=== PATIENT | female | born 1995 | race Caucasian/White ===

== ENCOUNTER 2023-02-20 17:07 | Emergency (ER) | payer BC, SELFPAY ==
[2023-02-20 17:09] VITALS: BP 108/73; PULSE 102; RESP 16; TEMP 36.7; O2SAT 98
--- NOTE | 2023-02-20 17:37 | W.ED.GENAD ---
Discharge Plan Disposition Patient Disposition: Home Discharge Details Clinical Impression: Tinea versicolor Primary Care Provider: None,None ED Provider: Jimmy Jaime Home Meds and New Rx's Prescriptions: New ketoconazole 2 % cream 1 applic topical HS 14 Days Qty: 30 1RF Discharge Instructions Instructions: Tinea Versicolor (ED) Additional Instructions: Please continue to monitor your symptoms and return immediately for any new or significant worsening of your condition. Otherwise we have placed a referral for you to establish a primary care provider locally and follow-up on the rash. Please use the provided medication for at least 2 weeks and if rash is gone please use for at least another 3 to 4 days. Discharge Data Discharge Date/Time-TO BE ENTERED AT DEPARTURE: 02/20/23 17:55 Medical Decision Making Patient presenting to the emergency department with chief complaint of rash the past couple years. She does state that rash seems to be slightly spreading from left leg large spot to a couple spots on her right leg. Both areas are below the knee. No other significant symptoms reported. Physical exam shows tinea versicolor type rash to lower extremities. Exam is otherwise unremarkable. Padilla lamp was utilized and did show some fluorescence noted. Patient placed upon ketoconazole and recommended to monitor and return for any new or significant worsening of symptoms. Patient is new to the area and does not have primary care provider so she was placed on a list for establishment of primary care provider and reassessment of rash. After discussion of diagnosis and plan of care patient has no further needs, questions, or concerns and states clear understanding to return to the emergency department for any worsening symptoms. This documentation was generated using [employer] [place] dictation system, please disregard any oddities of phrase or misspellings. HPI General Mode of arrival: ambulatory. Date/Time Provider Initiated Documentation: 02/20/23 17:33. Limitations to Documentation: no limitations. Information obtained by: patient and RN notes reviewed. History of Present Illness 27 year old F presents to the emergency department with the chief complaint of Lower extremity rash, described as mild, with intensity rated at 3. Quality is described as burning, and is localized to the left and lower extremity. Patient reports no radiation. Patient started experiencing this year(s) (2) and it has been constant. No relieving factors improve symptom(s), No exacerbating factors reported . Patient notes no other symptoms.. Patient did receive the following treatments prior to arrival, none Related Data Home Medications Medication Instructions Recorded Confirmed ketoconazole 2 % topical cream 1 applic topical HS 2 weeks #30 02/20/23 grams Previous Rx's Medication Instructions Recorded ketoconazole 2 % topical cream 1 applic topical HS 2 weeks #30 02/20/23 grams Allergies Allergy/AdvReac Type Severity Reaction Status Date / Time No Known Allergies Allergy Unverified 02/20/23 17:16 General Stated Complaint: RashLesion PABLITO: 4 Review of Systems Narrative: 6 systems reviewed and unremarkable except what is marked below. Integumentary/Breasts Skin/Breast: Reports as per HPI, Reports change in pigmentation, Reports new lesions, Reports skin pain and Denies unusual bruising PFSH All Active Problems Tinea versicolor (Acute) Social History Smoking/Tobacco Use Status: Never Smoking risk assessment performed?: Yes Alcohol Intake: never Drug use: Daily Substance use type: marijuana Do you feel safe at home: Yes Do you feel safe in your relationship?: Yes Exam Const General: cooperative, no acute distress and not ill appearing Orientation: alert, awake and oriented x3 HENMT Mouth: moist mucous membranes Resp Effort & Inspection: normal respiratory effort, able to speak in complete sentences and no respiratory distress Cardio Rate: regular rate Rhythm: regular rhythm Pulses: radial pulses present Skin Lesions: lesion noted patch bilateral distal lower leg borders scalloped, color brawny brown and surface dry and hyperpigmented; nontender Neuro General: patient alert, patient awake, patient oriented x3, moves all extremities and no focal motor deficits Sensory Exam: no sensory deficits noted Course Vital Signs Vital signs: Vital Signs Temperature 36.7 C 02/20/23 17:09 Pulse 102 H 02/20/23 17:09 Respiratory Rate 16 02/20/23 17:09 Blood Pressure 108/73 02/20/23 17:09 Pulse Oximetry 98 02/20/23 17:09 Temperature 36.7 C 02/20/23 17:09 Pulse 102 H 02/20/23 17:09 Respiratory Rate 16 02/20/23 17:09 Respiratory Effort Normal 02/20/23 17:15 Blood Pressure 108/73 02/20/23 17:09 Blood Pressure Position Sitting 02/20/23 17:09 Pulse Oximetry 98 02/20/23 17:09 Oxygen Delivery Method Room Air 02/20/23 17:09 Oxygen Flow Rate 0 02/20/23 17:09 Pain Level 6 02/20/23 17:09
== END 2023-02-20 17:55 | disposition home or self-care (01) ==
PROVIDERS: Emergency Provider Nurse Practitioner Family
DX: B36.0 Pityriasis versicolor (principal)
CPT/HCPCS: 99283

== ENCOUNTER 2023-06-12 12:23 | Outpatient (REF) | payer BC, SELFPAY ==
--- NOTE | 2023-06-12 11:20 | PAPFT_PTH ---
PATIENT: Ursula Alvarado LOC: [facility] U#:[id number] AGE/SX: 27/F ROOM: RE06/12/[address]: Nighat Waite NP : 1995 BED: DIS: 06/12/2023 SPEC #: [id number] RECD: 06/12/23 13:01 STATUS: BIGG SIMS #: [id number] SILVIA: 06/12/23 11:[address]: Nighat Waite NP DEPT: [facility] Cytology RECD BY: Lia Carrasco ENTERED: 06/12/23 13:01 SP TYPE: PAPFT SAKINA DR: None Tissues: 1 - CX/ENDOCX FOR PAP SMEARS Procedures: PAP THIN PREP/UVM Screening Comments: [id number] (CHLAMYDIA/GC)
[2023-06-13 16:16] LABS: Chlamydia Result Negative (Negative); GC Result Negative (Negative)
== END 2023-06-12 12:24 | disposition home or self-care (01) ==
LOC: LBN 12:23
PROVIDERS: Visit Provider Nurse Practitioner Women's Health
DX: N76.0 Acute vaginitis (principal); Z12.4 Encounter for screening for malignant neoplasm of cervix
CPT/HCPCS: 87491; 87591; 88142; 87480; 87510; 87660

== ENCOUNTER → 2023-07-12 01:00 | Outpatient (CLI) | payer BC, SELFPAY ==
--- NOTE | 2023-07-12 08:30 | DI.US_ITS ---
Exam(s) US BREAST RT LIMITED MG MAMMO DIAGNOSTIC BI EXAM: MAMMO DIAGNOSTIC BI CLINICAL HISTORY: bilat breast pain and redness, PAINFUL BREASTS, SKIN CHANGES, N64.4. COMPARISON: No exams were available for comparison . Baseline examination. TECHNIQUE: Craniocaudal and mediolateral oblique Full Field Digital Mammography views of both breast s with Computer Aided Diagnosis followed by Tomosynthesis and right breast ultrasound. FINDINGS: Mammography/Tomosynthesis: Masses/Architectural Distortion: None seen. Microcalcifications: No suspicious pleomorphic-type are seen. Skin Thickening/Nipple Retraction: None. Right breast US: Echotexture: Normal appearance of the glandular tissue. Shadowing: No suspicious foci. Cyst: None. Solid lesions: None seen. Ductal dilation: None. IMPRESSION: 1. No evidence of malignancy is noted. 2. Unless there is more urgent need, follow-up screening mammography is recommended, as per [place] [employer] guidelines. BI-RADS Category 1 - Negative Breast Density - Category A - Almost entirely fatty A negative radiographic report should not delay biopsy if a dominant or clinically suspicious mass is present. Up to ten percent of cancers are not identified on mammography. A negative report may reinforce clinical impression. Adenosis and dense breasts may obscure an underlying neoplasm. False positive reports average 6 to 10%. Patient will receive a letter notifying them of these results.
== END ==
PROVIDERS: Visit Provider Nurse Practitioner Women's Health
DX: N64.4 Mastodynia (principal); R23.4 Changes in skin texture; Z12.31 Encounter for screening mammogram for malignant neoplasm of breast
CPT/HCPCS: 76642; 77062; 77066; G0279

== ENCOUNTER 2025-06-14 12:32 | Emergency (ER) | payer BC, SELFPAY ==
[2025-06-14 12:33] VITALS: BP 171/85; PULSE 74; RESP 16; TEMP 36.9; O2SAT 97
--- NOTE | 2025-06-14 14:02 | ED.GENADUL_ITS ---
Discharge Plan Disposition Patient Disposition: Home Condition: Good Discharge Details Clinical Impression: Headache, Numbness, Weakness Primary Care Provider: Ximena Duggan ED Provider: Melissa Perkins Home Meds and New Rx's Prescriptions: No Action phentermine 15 mg capsule 15 mg PO DAILY Qty: 30 0RF Rx Instructions: must administer 2 hours after breakfast Discharge Instructions Instructions: Headache, Adult ED Additional Instructions: As we discussed, your labs and imaging are reassuring here today. However, I do remain concerned that you need further evaluation such as an outpatient MRI. Please call Ximena Pederson's office tomorrow, number listed below to schedule prompt follow-up. I have also asked our care management team to help assist with this. I have also referred you to local neurology, Dr. Syed, her number is also listed below. Please try to keep a journal of your symptoms to see if anything does make these any better or worse. If you develop fever/chills, worsening headache or other new/worsening symptom please to care urgently once again. Referrals: Devorah Syed MD [[facility] STAFF PHYSICIAN, Neurology] Ximena Duggan NP [Primary Care Provider, Medicine] Discharge Data Discharge Date/Time-TO BE ENTERED AT DEPARTURE: 06/14/25 17:59 HPI General Date/Time Provider Initiated Documentation: 06/14/25 12:49 . Limitations to Documentation: no limitations . Information obtained by: patient, family () and RN notes reviewed . History of Present Illness 29 year old F presents to the emergency department with the chief complaint of left eye twiching, weakness, sensory changes, described as moderate and similar to prior episodes (has had similar episodes historically), Quality is described as other (denies pain), and is localized to the face, left and upper extremity. Patient started experiencing this month(s) (>1) and it has been constant. No relieving factors improve symptom(s), No exacerbating factors reported . Patient notes headaches (intermittent) and weakness; denies confusion, chest pain, diaphoresis, fever/chills, loss of appetite, malaise, nausea/vomiting, rash, seizure, shortness of breath and syncope. Patient did receive the following treatments prior to arrival, none Related Data Home Medications ?Medication ?Instructions ?Recorded ?Confirmed phentermine 15 mg capsule 15 mg PO DAILY #30 caps 08/0406/14/25 Previous Rx's ?Medication ?Instructions ?Recorded phentermine 15 mg capsule 15 mg PO DAILY #30 caps 08/04 Allergies Allergy/AdvReac Type Severity Reaction Status Date / Time No Known Allergies Allergy Verified 06/14/25 12:37 General Stated Complaint: EyeProblem PABLITO: 4 Review of Systems Constitutional Constitutional: Reports as per HPI, Denies chills, Reports fatigue, Denies fever(s), Denies frequent falls, Reports headache(s) and Denies weakness Eyes Eyes: Reports as per HPI, Denies blurry vision and Denies change in vision ENT Ears, Nose, Mouth, and Throat: Denies vertigo, Reports headache(s) and Denies neck pain Cardiovascular Cardiovascular: Reports as per HPI, Denies chest pain, Denies lightheadedness, Denies radiating jaw, neck or arm pain, Denies dyspnea and Denies dyspnea on exertion Respiratory Respiratory: Reports as per HPI, Denies chest congestion, Denies cough, Denies dyspnea and Denies dyspnea on exertion Gastrointestinal Gastrointestinal: Reports as per HPI, Denies abdominal pain, Denies change in bowel habits, Denies nausea and Denies vomiting Musculoskeletal Musculoskeletal: Reports as per HPI, Denies back pain, Denies myalgias, Denies muscle cramps and Denies neck pain Integumentary/Breasts Skin/Breast: Reports as per HPI and Denies rash Neurologic Neurologic: Reports as per HPI, Denies abnormal movements, Denies abnormal speech, Denies behavioral changes, Denies confusion, Denies vertigo, Denies frequent falls, Reports headache(s) and Denies weakness Psychiatric Psychiatric: Denies behavioral changes and Denies confusion Endocrine Endocrine: Reports fatigue Exam Const General: cooperative, healthy appearing, comfortable, no acute distress, well developed and well groomed Nutritional Appearance: well nourished and overweight Orientation: alert, awake and oriented x3 HENMT Head: normal to inspection, no palpable skull fracture, normocephalic and atraumatic Ears: hearing grossly normal bilaterally, external ears normal and TM's normal bilaterally General nose exam: external nose normal Mouth: oral mucosae normal and moist mucous membranes Throat: posterior oropharynx normal Eyes General: appearance normal, both eyes and all related structures Alignment and Position: alignment normal Periorbital: periorbital findings normal Eyelids: eyelids normal Sclera: sclerae normal Cornea: corneas normal Pupils: PERRL EOM: EOM intact bilaterally Neck Neck: normal visual inspection, full ROM, no lymphadenopathy and no meningeal signs Resp Effort & Inspection: normal respiratory effort, able to speak in complete sen tences and no respiratory distress Auscultation: clear to auscultation bilaterally, no rales, no rhonchi and no wheezes Cardio Rate: regular rate Rhythm: regular rhythm Heart Sounds: S1 normal and S2 normal Back/Spine/Pelvis Cervical Spine: normal cervical lordosis and cervical ROM normal Skin General skin exam: no rashes or lesions noted Neuro General: patient alert, patient awake and patient oriented x3 Cranial Nerves: PERRL, accommodation normal, EOM intact bilaterally, no nystagmus, facial strength normal, tongue midline, hearing normal, able to rotate head bilaterally, able to elevate shoulders bilaterally, symmetric palate elevation and other (diminished sensation lower half of left side of face) Cognition: normal cognition Speech: speech normal Gait: normal gait Motor: muscle tone normal throughout, strength 5/5 throughout, no pronator drift, no movement abnormalities noted and no fasciculations Sensory Exam: no sensory deficits noted Coordination: [id number] test normal, [id number] test normal, Romberg test normal, Does not sway with eyes open and rapid alternating movement UE normal Extrem General: normal to inspection, capillary refill normal, no pedal edema and no calf tenderness Course Vital Signs Vital signs: Vital Signs Temperature 36.9 C 06/14/25 12:33 Pulse 74 06/14/25 12:33 Respiratory Rate 16 06/14/25 12:33 Blood Pressure 171/85 H 06/14/25 12:33 Pulse Oximetry 97 06/14/25 12:33 Temperature 36.9 C 06/14/25 12:33 Temperature Source Oral 06/14/25 12:33 Pulse 74 06/14/25 12:33 Respiratory Rate 16 06/14/25 12:33 Blood Pressure 171/85 H 06/14/25 12:33 Pulse Oximetry 97 06/14/25 12:33 Oxygen Delivery Method Room Air 06/14/25 12:33 Oxygen Flow Rate 0 06/14/25 12:33 Pain Level 6 06/14/25 12:33 Medical Decision Making Patient is a pleasant 29-year-old female with past medical history significant for migraines, anxiety, depression, endometriosis, syncope, presenting with chief complaint of left eye twitching, headaches, left upper extremity weakness and left-sided facial numbness for the past 4 weeks. She reports that symptoms came on abruptly and have been persistent since that time. She reports that she comes in today as she was having some weakness causing her to drop things at work which was noted by coworkers. They subsequently advised that she come in for evaluation. She reports that she has had issues neurologically in the past, was evaluated previously in [place] for similar episodes but at which time she was having some numbness along the right side of her body. She reports that the entire right side of her body continues to be numb. No change in this over the past 3 years. States that when she was evaluated there, she had a pea-sized lesion on her brain which was reported to be benign. She does not have any follow-up for this and is unclear on the differentials or diagnoses. She did let me review the note from her visit at that point and this mass was not seen in the emergency department discharge summary. Patient denies any recent medications. States that her diet if anything is more healthy. No recent fevers, chills, illness. 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 On exam, patient appears nontoxic. Resting comfortably no acute distress. She is hypertensive with blood pressure 171/85. Normal cardiovascular exam, no pulmonary distress. She is reporting some numbness in the left side of her face which spares the forehead but motor function is intact. Normal right soft palate and remaining cranial nerves are within normal limits. I was not able to objectively appreciate any of the twitching she was reporting but states that is typically along the lower lid. Hearing is intact, no abnormalities on ear exam. She does have some slight weakness on the left upper extremity but it is intermittent with health care administrator being on/off rather than constant force. No sensory issue. No LE weakness. Romberg normal. coordination normal. Based on the symptoms and consistency of them, considered cervical dissection, will evaluate with CTA. She has not had any health care administrator previously. No neck pain. She does not have personal or familial hx of CVA, this is unlikely given age and symptoms. She has had similar sytmpoms in the back which increased consideration for MS, however, the sudden onset and lack of other constitutional symptoms decreas my concern. She has had the prior lesion. She was able to pull up old report- calls the lesion a lipoma. Hx and exam not consistent with infection, no indication of meningitis or encephalitis. Exam not consistent with [place] palsy. Also considered electrolyte or metabolic derangement. Again, s ymptoms did come on quickly then plateaued and have not worsened over sukhi past 4 wks, unlike to be progressing further at this point. Labs reviewed, no acute abnormality. Imaging reviewed by radiologist: IMPRESSION: 1. No large vessel occlusion or significant stenosis on the CT angiography of the head. 2. No acute intracranial process. 3. No occlusion or significant stenosis on the CT angiography of the neck. Discussed with patient. Again, I do not see evidence of emergent process at this time. We discuss concern for change int he lipoma or other etiology and I believe a prompt outpatient MRI is appropriate. I have asked her to follow up BUDDY with PCP to discuss setting up outpatient MRI. Encouraged supportive care and close monitoring of symptoms in the mean time. Strict return precautions discussed. All of his questions and conerns were addressed, she is in agreeement with this plan. PFSH All Active Problems (Updated 06/14/25 @ 17:34 by JOSY Bella) Weakness (Acute) Numbness (Acute) Headache (Acute) Obesity, Class III, BMI 40-49.9 (morbid obesity) (Acute) 05/04/24 Seen at [facility] Medical History (Updated 06/14/25 @ 17:34 by JOSY Bella) Migraine Anxiety Depression Endometriosis Surgical History (Updated 10/21/23 @ 14:14 by Yanet Suarez RN) History of esophagogastroduodenoscopy (EGD) 10/16/23- received report. done by Saroj Espinosa MD. Final diagnosis: A. Stomach,Antrum,Biopsy: -Gastirc oxyntic mucosa with no significant diagnostic abnormalities. -No histologic evidence of Helicobacter organisms. Hx of cholecystectomy 03/22/22 [place], [place] Hx of tonsillectomy 05/12/16 [place], [place] Family History (Updated 06/12/23 @ 11:15 by Barb Martinez) Father Substance use disorder Anxiety Hypertension Mother Anxiety Heart disease A-Fib Hypertension Paternal Grandfather Hypertension Other Breast cancer Diabetes Social History (Updated 02/18/24 @ 16:55 by Estella SOTO Smoking/Tobacco Use Status: Never Smoking risk assessment performed?: Yes Alcohol Intake: never Drug use: Daily Substance use type: marijuana Adopted: No Caregiver/Support person: No Household members: spouse, family and children Housing: apartment Number of Children: 2 number of grandchildren: 0 Communication Needs: Corrective Lenses Education Level: college Details: enrolled Do you need help understanding health information?: Never current occupation: works at [employer] Pets and animals: Yes Pets and animals: cat(s) Sexually active: Yes Do you think of yourself as: bisexual Current gender identity: female What is your relationship status?: How often do you talk on the phone with friends or family?: three or more times per week How often do you get together with friends or relatives?: once per week Do you belong to any clubs or organized social groups?: no Panel score (0-1 are the most socially isolated patients): 2 What type of physical activity do you participate in: walking Duration: 15-30 minutes/day Frequency: 3-4 times per week Romina/Yarsani: Episcopal Special romina needs: No Seatbelt use: sometimes Helmet use: No Drive intox or 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
--- NOTE | 2025-06-14 14:30 | DI.CT_ITS ---
Exam(s) CT BRAIN NECK CTA EXAM: CT BRAIN NECK CTA CLINICAL HISTORY: left facial pain, eye changes, PORTER, left arm weak. TECHNIQUE: Imaging Protocol: Axial CT angiography was performed with multi- slice acquisition and multi-planar and/or 3D reconstructions. CONTRAST MATERIAL: Intravenous: Contrast contrast volume:structured data in ml mL COMPARISON: No exams were available for comparison FINDINGS: CT Head W/O and W: Ventricles and Extra axial spaces: Normal in size and morphology for the patient's age. There is a midline 1.4 x 0.7 cm fat density lesion posteriorly near the pineal gland. Differential considerations include benign lesion such as intracranial lipoma, teratoma or dermoid cyst. Hemorrhage: None. Cerebral parenchyma: There is a normal trivedi-white matter differentiation. There is no mass effect present. Midline shift: None. Brainstem/Cerebellum: Normal. Calvarium: Normal. Visualized Paranasal sinuses/Mastoids: Clear. Soft Tissues: Unremarkable. Enhancement: Unremarkable. CTA Neck W: Common Carotid: Right: No dissection, occlusion or significant stenosis. Left: No dissection, occlusion or significant stenosis. External Carotid: Right: No occlusion or significant stenosis. Left: No occlusion or significant stenosis. Internal Carotid: Right: No dissection, occlusion or significant stenosis. Left: No dissection, occlusion or significant stenosis. Vertebral Artery: Right: No dissection, occlusion or significant stenosis. Left: No dissection, occlusion or significant stenosis. Lung Apices: Normal. Bones: Within normal limits for the patient's age. Soft Tissues: Normal. Thyroid gland: Unremarkable. CTA Brain W: Internal Carotid Arteries: No aneurysm, occlusion or significant stenosis. Anterior Cerebral Arteries: Right: No aneurysm, occlusion or significant stenosis. Left: No aneurysm, occlusion or significant stenosis. Middle Cerebral Arteries: Right: No aneurysm, occlusion or significant stenosis. Left: No aneurysm, occlusion or significant stenosis. Posterior Cerebral Arteries: Right: No aneurysm, occlusion or significant stenosis. Left: No aneurysm, occlusion or significant stenosis. Vertebral Arteries: Right: No aneurysm, occlusion or significant stenosis. Left: No aneurysm, occlusion or significant stenosis. Basilar Artery: No aneurysm, occlusion or significant stenosis. IMPRESSION: 1. No large vessel occlusion or significant stenosis on the CT angiography of the head. 2. No acute intracranial process. 3. No occlusion or significant stenosis on the CT angiography of the neck. RADIATION DOSE DELIVERED: 2,198.55mGy.cm Total DLP DATA REPOSITORY: All CT scans at this facility are submitted to the National Radiology Data Registry (NRDR) Dose Index Registry (DIR) with the [employer] (ACR). RADIATION OPTIMIZATION: All CT scans at this facility use at least one of these dose optimization techniques: automated exposure control; mA and/or kV adjustment per patient size (includes targeted exams where dose is matched to clinical indication); or iterative reconstruction.
--- NOTE | 2025-06-14 14:30 | RT.EKG_ITS ---
APPROVED REPORT Exam: Resting ECG Reason for Exam: dizzy Patient Location: E HR:59 bpm ECG Measurements Heart Rate 59 AXIS DE 138 P -13 QRSd 87 QRS 65 QT 398 T 52 QTc 393 Conclusion Sinus bradycardia at a rate of 59 without acute ischemic change with normal intervals
[2025-06-14 15:20] VITALS: BP 171/85; PULSE 74; RESP 16; TEMP 36.9; O2SAT 97
[2025-06-14] MEDS: Normal Saline - Diluent 50 ML VIAL IJ (15:27)
[2025-06-14] MEDS: Omnipaque 350 MG/ML 100 ML BTL IJ (15:27)
[2025-06-14 15:28] LABS: Abs Immature Grans 0.02 10^3/uL (0.0-0.06); HCT 41.7 % (36.0-46.0); HGB 13.7 g/dL (11.2-15.7); Immature Grans % 0.2 %; MCH 31.4 pg (27.0-33.0); MCHC 32.9 % (32.0-36.0); MCV 95 fL (80-95); MPV 11.1 fL (8.0-11.0); Platelet Count 228 10^3/uL (130-400); RBC 4.37 10^6/uL (3.93-5.22); RDW 12.6 % (11.7-14.6); RDW-SD 44.4 fL; WBC 8.95 10^3/uL (4.4-10.8)
[2025-06-14 15:44] LABS: Magnesium 2.3 mg/dL (1.8-2.4)
[2025-06-14 15:58] VITALS: RESP 18; O2SAT 98
[2025-06-14 16:00] LABS: ALT 35 U/L (14-59); AST 19 U/L (15-37); Albumin 4.2 g/dL (3.4-5.0); Alkaline Phosphatase 39 U/L (46-116); Anion Gap 6.7 mmol/L (3-11); BUN 11 mg/dL (7-18); Bilirubin, Total 0.6 mg/dL (0.2-1.0); CO2 29.3 mmol/L (21.0-32.0); Calcium 9.0 mg/dL (8.5-10.1); Chloride 103 mmol/L (98-107); Estimated GFR 101.59 (mL/min/1.73m2); Glucose 89 mg/dL (74-106); Potassium 3.7 mmol/L (3.5-5.1); Sodium 139 mmol/L (136-145); Total Protein 7.4 g/dL (6.4-8.2)
[2025-06-14 16:02] VITALS: PULSE 58; O2SAT 98
[2025-06-14] MEDS: Lactated Ringers 1,000 ML 1000 ML IV (16:13)
[2025-06-14] MEDS: Acetaminophen 500 MG TAB 1000 MG PO (16:28)
--- NOTE | 2025-06-15 09:48 | NUR.NOTE ---
Nursing Note:Pt called DI about an MRI. There was no order put in place and a recommended out patient MRI was mentioned. I called the patient and spoke with her about how outpatient MRIs work but she said that she does not have a PCP to order one. She was also referred to Neuro. I suggested that she call Dr Syed today to make sure that they got the referral and that she gets an appointment as soon as possible. I also informed her that Dr Syed has the ability to order an MRI, should she feel like it is necessary. The patient is going to call them today and try to get in as soon as she can.
== END 2025-06-14 17:59 | disposition home or self-care (01) ==
PROVIDERS: Emergency Provider Physician Assistant; PCP Nurse Practitioner
DX: R51.9 Headache, unspecified (principal); I10 Essential (primary) hypertension; R20.0 Anesthesia of skin; R53.1 Weakness
CPT/HCPCS: 36416; 70496; 70498; 80053; 82962; 93005; 96360; 99285; 83735; 85025; 93010; 99284; J3490